=== PATIENT | female | born 1975 | race Asian ===

== ENCOUNTER 2020-06-22 19:01 | Emergency (ER) | payer BC ==
[~2020-06-22] VITALS: Ht 167.6 cm; Wt 68.2 kg
[2020-06-22 19:24] VITALS: BP 149/83; Ht 167.6 cm; Wt 68.2 kg
[2020-06-22] MEDS ORDERED: TENORMIN25 MG (19:26)
[2020-06-22] MEDS ORDERED: COZAAR25 MG PO (19:26)
[2020-06-22] MEDS ORDERED: STERAPRED 5MG 65 M1 PO (20:47)
== END 2020-06-22 21:02 | disposition home or self-care (01) ==
LOC: D.ER 19:01
DX: M94.0 Chondrocostal junction syndrome [Tietze] (principal); I10 Essential (primary) hypertension; R07.9 Chest pain, unspecified